=== PATIENT | male | born 1950 | race Caucasian/White ===

== ENCOUNTER 2016-07-19 07:00 | Inpatient (IN) | payer OTHER ==
[2016-07-14 14:54] VITALS: BMI 33.6
--- NOTE | 2016-07-18 09:32 | HP ---
[facility] - Chief Complaint Chief Complaint: left knee pain - Past Medical History Allergies/Adverse Reactions: Allergies Allergy/AdvReac Type Severity Reaction Status Date / Time No Known Drug Allergies Allergy Verified 07/14/16 14:34 - Current Medications Current Medications: Home Medications Medication Instructions Recorded Acetaminophen [Tylenol -] 1,000 mg PO Q6H PRN 07/14/16 Ferrous Sulfate [Feosol] 325 mg PO DAILY 07/14/16 Lisinopril 10 mg PO DAILY 07/14/16 [facility] Physical Exam - Physical Examination General Appearance: Well Nourished, Well Developed, Alert & Oriented x3 ENT: Clear Lung: Normal air movement Heart: Regular rate & rhythm Extremities: Other (left knee- + swelling, + ttp, decr rom ,nvi xrays show severe tricompartmental djd) Neurological: Intact, Alert, Oriented [facility] Impression/Plan - Impression/Plan Impression: left knee djd Operative Procedure: left karis tkr Date to be Performed: 07/19/16
[2016-07-19] MEDS ORDERED: ceFAZolin SODIUM 1 GM VIAL ONE ×2 (07:06→09:47)
[2016-07-19] MEDS ORDERED: VANCOMYCIN 1,000 MG VIAL (RESTRICTED TO ID ONLY) ONE (07:06)
[2016-07-19] MEDS ORDERED: CELECOXIB 200 MG CAPSULE PO ONE (07:17)
[2016-07-19] MEDS ORDERED: GABAPENTIN 300 MG CAPSULE (FP) PO ONE (07:17)
[2016-07-19] MEDS ORDERED: oxyCODONE HCL 10 MG SUSTAINED ACTING TABLET PO ONE (07:17)
[2016-07-19] MEDS ORDERED: TRANEXAMIC ACID 1000 MG/10 ML VIAL IVPUSH ONE (07:17)
[2016-07-19] MEDS ORDERED: CEFAZOLIN 2 GM in DEXTROSE 5%-WATER - 50 ML IVPB ONE (07:17)
[2016-07-19] MEDS ORDERED: ROPIVACAINE HCL 0.5% 30ML VIAL ONE (08:13)
[2016-07-19] MEDS ORDERED: MIDAZOLAM HCL 2 MG/2 ML SINGLE DOSE VIAL ONE ×2 (08:13→09:52)
[2016-07-19] MEDS ORDERED: SODIUM CHLORIDE 0.9% P/F 10 ML VIAL IJ ONE (08:13)
[2016-07-19] MEDS ORDERED: DEXAMETHASONE SOD PHOSPHATE/PF 10 MG/ML SDV ONE (08:13)
[2016-07-19] MEDS ORDERED: LIDOCAINE 1% P/F 10 MG/ML VIAL ONE (08:33)
[2016-07-19] MEDS ORDERED: SUCCINYLCHOLINE CHLORIDE 200 MG/10 ML VIAL ONE (09:09)
[2016-07-19] MEDS ORDERED: BUPIVACAINE HCL/PF 0.5% (5MG/ML) 10 ML VIAL ONE (09:36)
[2016-07-19] MEDS ORDERED: LIDOCAINE HCL/PF 2% SDV 5ML VIAL ONE (09:47)
[2016-07-19] MEDS ORDERED: ROPIVACAINE 0.2% 400ML 400 ML ML NR ONE (10:00)
[2016-07-19] MEDS ORDERED: ONDANSETRON 4 MG/2 ML VIAL ONE ×2 (11:17→12:47)
[2016-07-19] MEDS ORDERED: MAGNESIUM HYDROX 2400MG/30ML ORAL SUSPENSION 30 ML CUP PO PRN (12:12)
[2016-07-19] MEDS ORDERED: MAG HYDROX/AL HYDROX/SIMETH 30 ML UNIT-DOSE CUP PO PRN (12:12)
[2016-07-19] MEDS ORDERED: LACTATED RINGERS SOLUTION 1,000 ML IV SCH (12:15)
--- NOTE | 2016-07-19 12:15 | OP ---
Operative Note - Note: Operative Date: 07/19/16 (star) Pre-Operative Diagnosis: left knee djd Operation: left makoplasty tkr Post-Operative Diagnosis: Same as Pre-op Surgeon: Elmer Gonzalez Anatomy And Physiology Instructor: Earl Fuentes Anesthesiologist/TIRE BUFFER: Roula Ford Anesthesia: Spinal, Local Specimens Removed: bone fragments Estimated Blood Loss (mls): 50 (tourniquet) Operative Report Dictated: Yes
[2016-07-19] MEDS ORDERED: ACETAMINOPHEN 1000 MG/100 ML VIAL (NON FORMULARY) IVPB ONE (12:30)
[2016-07-19] MEDS ORDERED: ONDANSETRON 4 MG/2 ML VIAL IVPB PRN (12:45)
[2016-07-19] MEDS ORDERED: PROMETHAZINE HCL 25 MG/1 ML VIAL ONE (13:00)
[2016-07-19] MEDS: oxyCODONE HCL 5 MG TABLET PO PRN ×3 (15:50→23:49)
[2016-07-19] MEDS: CEFAZOLIN 2 GM/D5W 50 ML IVPB SCH (18:00)
[2016-07-19] MEDS: ACETAMINOPHEN 325 MG TABLET (FP) PO SCH (18:40)
[2016-07-19] MEDS: SENNOSIDES/DOCUSATE COMBO (SENNA PLUS) TABLET (UD) PO SCH (21:10)
[2016-07-19] MEDS: oxyCODONE HCL 10 MG SUSTAINED ACTING TABLET PO SCH (21:16)
[2016-07-19] MEDS: GABAPENTIN 300 MG CAPSULE (FP) PO SCH (21:20)
[2016-07-20] MEDS: ACETAMINOPHEN 325 MG TABLET (FP) PO SCH ×5 (01:42→23:55)
[2016-07-20] MEDS: CEFAZOLIN 2 GM/D5W 50 ML IVPB SCH (01:49)
[2016-07-20] MEDS: oxyCODONE HCL 5 MG TABLET PO PRN ×3 (08:03→23:54)
[2016-07-20] MEDS: ASPIRIN 325 MG TABLET PO SCH (08:03)
--- NOTE | 2016-07-20 08:10 | PN ---
Progress Note (short form) - Note Progress Note: Ortho Pt seen and examined s/p left karis tkr pod #1 Selected Entries 07/20/16 06:33 Temperature 98.3 F Pulse Rate 56 L Respiratory 20 Rate Blood Pressure 135/56 dressing c/d/i ,calf soft, nt rom 0-50, nvi cbc pending a/p PT dvt ppx pain control d/c home tomorrow if stable
[2016-07-20 09:00] LABS: MCH 32.2 pg (25.7-33.7); MCHC 34.9 g/dl (32.0-35.9); MEAN CELL VOLUME 92.2 fl (80-96); MEAN PLT VOLUME 8.7 fl (7.5-11.1); PLATELET COUNT 191 K/MM3 (134-434); RDW 12.5 % (11.9-15.9); WHITE BLOOD COUNT 9.6 K/mm3 (4.0-10.0)
[2016-07-20 09:02] LABS: CREATININE 1.1 mg/dl (0.6-1.3)
[2016-07-20] MEDS: SENNOSIDES/DOCUSATE COMBO (SENNA PLUS) TABLET (UD) PO SCH ×2 (10:32→21:34)
[2016-07-20] MEDS: MULTIVITAMINS (DAILY MVI) TABLET (FP) PO SCH (10:32)
[2016-07-20] MEDS: LISINOPRIL 10 MG TABLET (FP) PO SCH (10:33)
[2016-07-20] MEDS: oxyCODONE HCL 10 MG SUSTAINED ACTING TABLET PO SCH ×2 (10:33→21:33)
[2016-07-20] MEDS: FERROUS SO4 325 MG TABLET (FP) PO SCH (10:33)
[2016-07-20] MEDS: GABAPENTIN 300 MG CAPSULE (FP) PO SCH ×2 (10:33→21:33)
[2016-07-20] MEDS: PANTOPRAZOLE 40 MG TABLET (FP) PO SCH (10:33)
--- NOTE | 2016-07-20 13:34 | OP ---
DATE OF OPERATION: 07/19/2016 PREOPERATIVE DIAGNOSIS: Degenerative joint disease, left knee. POSTOPERATIVE DIAGNOSIS: Degenerative joint disease, left knee. PROCEDURE: Left total knee replacement with robotic-assisted navigation. SURGICAL ATTENDING: Elmer Gonzalez M.D. ANESTHESIA: Spinal and regional. CLOSURE: 1. Triathlon Knee System with 6 femur, 6 tibia, 9TS polyethylene and a 32 patella. 2. No. 1 Vicryl for fascia, 0 and 2-0 for subcutaneous, and 3-0 Monocryl subcuticular with skin glue for the skin. ESTIMATED BLOOD LOSS: Negligible. TOURNIQUET TIME: Approximately 90 minutes. COMPLICATIONS: None. DESCRIPTION OF PROCEDURE: The patient was taken to the operating room on July 19, 2016. Spinal and regional anesthesia was administered by the anesthesiologist. IV Kefzol/TXA were administered prophylactically prior to the case. A well-padded pneumatic tourniquet was placed on the left proximal thigh. The left lower extremity was prepped and draped in the usual sterile fashion. The leg was exsanguinated with an Esmarch bandage. The tourniquet was inflated to 175 mmHg. Two bicortical pins were placed in the femur and two in the tibia through small stab incisions. Each were one handbreadth above the patella and below the tibial tubercle. To these pins were fashioned navigation arrays to communicate with the robotic arm. A longitudinal midline incision was then made approximately 14 cm in length down to the level of the extensor mechanism. Sufficient flaps were made medially and laterally to perform the procedure. A medial parapatellar arthrotomy was then performed. The patella was found to have been squashed and it had become very, very large with huge osteophytes. These were debrided in order to aid in exposure inside the knee. A partial fat pad was excised. The proximal tibia was dissected using subperiosteal dissection until the knee was able to be brought forward. This was facilitated by taking the ACL, PCL and the lateral meniscus. Two check points, one in the femur and one in the tibia, were malleted into place. The knee was then registered with the navigation device with center of rotation at the hip, medial and lateral mallei and multiple points on both the femur and the tibia. We then "popped the bubbles" to confirm excellent registration. Tensioning at 90 degrees of flexion and full extension in varus and valgus was used to optimize the virtual position of the components. The robotic arm was then brought into the field. The proximal tibia and all the cuts on the femur were made to facilitate the appropriate size components and to optimize their position. All bone was excised. The keel was then made in the tibia and the box in the femur using single-use guides. Trial reduction with the 6 femur, 6 tibia, 9 polyethylene insert achieved full extension and excellent tracking of the patella. This was done after the patella was osteotomized to the appropriate level and a lollypop was used to put a patella button. It tracked excellently throughout the range of motion and good stability throughout in flexion and extension. The pins and the arrays were disassembled. The check points were removed. The trial components were removed. The knee was pulse antibiotic irrigated. The real components were then cemented in using moderate generation cement techniques with antibiotics, cement and pressurization. The knee was thoroughly inspected to remove all excess cement and was pulse antibiotic irrigated. Prior to closure, vancomycin powder was placed into the knee. The medial parapatellar arthrotomy was then closed using No. 1 Vicryl. Range of motion of the knee after closure revealed excellent tracking of the patella with no undue tension on the repair. Subcutaneous was closed using 2-0 Vicryl and 3-0 Monocryl, subcuticular with skin glue for the skin. Sterile pressure dressing was applied of the Aquacel variety. The patient was awakened from anesthesia and transferred to the recovery room in stable condition with no complication. ESTIMATED BLOOD LOSS: Negligible. TOURNIQUET TIME: Approximately 90 minutes. Cristhian [id number]
[2016-07-21] MEDS: ACETAMINOPHEN 325 MG TABLET (FP) PO SCH ×2 (06:21→12:14)
[2016-07-21 07:56] LABS: MCH 32.1 pg (25.7-33.7); MEAN CELL VOLUME 91.9 fl (80-96); MEAN PLT VOLUME 8.5 fl (7.5-11.1); PLATELET COUNT 173 K/MM3 (134-434); RDW 12.4 % (11.9-15.9); WHITE BLOOD COUNT 9.7 K/mm3 (4.0-10.0)
[2016-07-21] MEDS: oxyCODONE HCL 5 MG TABLET PO PRN ×2 (08:24→12:14)
[2016-07-21] MEDS: ASPIRIN 325 MG TABLET PO SCH (08:24)
[2016-07-21] MEDS: FERROUS SO4 325 MG TABLET (FP) PO SCH (10:55)
[2016-07-21] MEDS: oxyCODONE HCL 10 MG SUSTAINED ACTING TABLET PO SCH (10:56)
[2016-07-21] MEDS: GABAPENTIN 300 MG CAPSULE (FP) PO SCH (10:56)
[2016-07-21] MEDS: LISINOPRIL 10 MG TABLET (FP) PO SCH (10:56)
[2016-07-21] MEDS: SENNOSIDES/DOCUSATE COMBO (SENNA PLUS) TABLET (UD) PO SCH (10:56)
[2016-07-21] MEDS: PANTOPRAZOLE 40 MG TABLET (FP) PO SCH (10:57)
[2016-07-21] MEDS: MULTIVITAMINS (DAILY MVI) TABLET (FP) PO SCH (10:57)
--- NOTE | 2016-07-21 12:22 | PN ---
Progress Note (short form) - Note Progress Note: Pt POD#2 for TKR under spinal w/ adductor canal catheter and tibial nerve block for post op pain control. Pt currently comfortable. O: Occasionally VAS 4/10 --> alleviated by po pain meds. a/p Stable post op course, no complications 2/2 spinal or nerve blocks. Adductor canal cath pulled, tip intact.
[2016-07-21 15:31] VITALS: BP 126/52; PULSE 65; TEMP 99.2
--- NOTE | 2016-07-21 16:49 | PATH ---
Surgical Pathology Report Patient Name: NARDA RUIZ Med. Rec. #: [id number] /Age/Gender: 1950 (Age: 65) / M Account: [id number] Location: [facility] MED-SURG Taken: 07/19/2016 Received: 07/19/2016 Reported: 07/21/2016 Physicians: Elmer Gonzalez M.D. Specimen(s) Received LEFT KNEE BONES Clinical History Left knee osteoarthritis Final Diagnosis BONE AND SOFT TISSUE, LEFT KNEE, REPLACEMENT: DEGENERATIVE JOINT DISEASE. Electronically Signed Frankie Vang M.D. Gross Description Received in formalin, labeled "left knee bones," is a 14.0 x 12.0 x 3.5 cm aggregate of multiple osuna, irregular portions of bone and soft tissue. The tibial plateau measures 8.5 x 5.8 x 1.8 cm. There is a 0.9 cm in greatest dimension area of eburnation present. The remaining articular surfaces are osnua-yellow and diffusely granular. The underlying trabecular bone is yellow and hard. Grain Combiner sections are submitted in one cassette, following decalcification. 07/20/201607/20/2016
== END 2016-07-21 17:00 | disposition home health service (06) | DRG 470 ==
LOC: FM/S 07:00
PROVIDERS: ADMIT Orthopaedic Surgery; ATTEND Orthopaedic Surgery
PROC: 8E0Y0CZ Robotic Assisted Procedure of Lower Extremity, Open Approach (ICD-10-PCS; 2016-07-19)
PROC: 0SRD0J9 Replacement of Left Knee Joint with Synthetic Substitute, Cemented, Open Approach (ICD-10-PCS; principal; 2016-07-19 09:00)
DX: M17.12 Unilateral primary osteoarthritis, left knee (principal); E78.5 Hyperlipidemia, unspecified; G47.30 Sleep apnea, unspecified; E55.9 Vitamin D deficiency, unspecified
CPT/HCPCS: 36415; 73560-TC-LT; 80048; 85027; 88305-TC; 88311-TC; 94010; 94660; 94760; 97116-GP; 97161-GP

== ENCOUNTER 2016-09-16 11:09 | Day surgery (SDC) | payer OTHER ==
[2016-09-15 12:34] VITALS: BMI 32.6
--- NOTE | 2016-09-16 11:05 | HP ---
[facility] - Chief Complaint Chief Complaint: left knee stiffness s/p TKR History Source: Patient - Past Medical History Allergies/Adverse Reactions: Allergies Allergy/AdvReac Type Severity Reaction Status Date / Time No Known Drug Allergies Allergy Verified 07/19/16 07:46 - Current Medications Current Medications: Home Medications Medication Instructions Recorded Acetaminophen [Tylenol 1,000 mg PO Q6H PRN 07/14/16 .Extra-Strength -] Ferrous Sulfate [Feosol] 325 mg PO DAILY 07/14/16 Lisinopril 10 mg PO DAILY 07/14/16 Aspirin [ASA -] 325 mg PO DAILY@0800 tablet 07/19/16 Oxycodone HCl/Acetaminophen 1 - 2 tab PO Q6H #50 tab MDD 8 07/19/16 [Percocet 5-325 mg Tablet -] [facility] Physical Exam - Physical Examination Extremities: Other (ROM 0-70) [facility] Impression/Plan - Impression/Plan Impression: stiffness left knee s/p TKR Operative Procedure: manipulation under anesthesia left knee Date to be Performed: 09/16/16
[2016-09-16] MEDS ORDERED: oxyCODONE HCL 5 MG TABLET PO PRN (12:28)
[2016-09-16] MEDS ORDERED: PROMETHAZINE HCL 25 MG/1 ML VIAL IVPUSH PRN (12:28)
[2016-09-16] MEDS ORDERED: ONDANSETRON 4 MG/2 ML VIAL IVPUSH PRN (12:28)
[2016-09-16] MEDS ORDERED: LACTATED RINGERS SOLUTION 1,000 ML IV SCH (12:30)
[2016-09-16] MEDS ORDERED: LIDOCAINE HCL/PF 2% SDV 5ML VIAL ONE (12:33)
[2016-09-16] MEDS ORDERED: PROPOFOL 20 ML ONE (12:33)
--- NOTE | 2016-09-16 12:52 | OP ---
Operative Note - Note: Operative Date: 09/16/16 Pre-Operative Diagnosis: stiffness s/p right total knee replacement Operation: manipulation under anesthesia right knee Post-Operative Diagnosis: Same as Pre-op Surgeon: Elmer Gonzalez Anesthesia: General Estimated Blood Loss (mls): 0 Operative Report Dictated: Yes
--- NOTE | 2016-09-16 13:41 | OP ---
DATE OF OPERATION: 09/16/2016 PREOPERATIVE DIAGNOSIS: Stiffness status post left total knee replacement. POSTOPERATIVE DIAGNOSIS: Stiffness status post left total knee replacement. PROCEDURE: Manipulation under anesthesia, left knee. SURGICAL ATTENDING: Elmer Gonzalez MD ANESTHESIA: IV sedation. DESCRIPTION OF OPERATIVE PROCEDURE: Patient was taken to the operating room on September 16, 2016. IV anesthesia was administered by the anesthesiologist. A gentle manipulation was performed. Patient easily achieved 0 to 90 degrees. However, further than that was not possible as patient came to a firm end point. He had full extension and full mobilization of the patella. However, I could not get him to flex greater than 90 degrees. With the risk of a fracture if I applied any more pressure, I decided to abandon any further manipulation past 90 degrees. Patient was then awakened from anesthesia and transferred to the recovery room in stable condition. ELMER GONZALEZ M.D. [id number]
[2016-09-16 13:43] VITALS: TEMP 98
[2016-09-16 15:13] VITALS: BP 144/70; PULSE 57
== END 2016-09-16 14:30 | disposition home or self-care (01) ==
LOC: JASU-SURG 11:09
PROVIDERS: ATTEND Orthopaedic Surgery
PROC: 0SNDXZZ Release Left Knee Joint, External Approach (ICD-10-PCS; principal; 2016-09-16 12:45)
DX: M25.662 Stiffness of left knee, not elsewhere classified (principal); Z96.652 Presence of left artificial knee joint
CPT/HCPCS: 94760

== ENCOUNTER 2025-03-13 06:15 | Day surgery (SDC) | payer OTHER, MEDICARE ==
[2025-03-12 10:11] VITALS: BMI 32.2
[2025-03-13 09:20] VITALS: TEMP 98.1
[2025-03-13 09:46] VITALS: RESP 18
[2025-03-13 09:48] VITALS: BP 110/46; PULSE 66
== END 2025-03-13 10:06 | disposition home or self-care (01) ==
LOC: JASU-ENDO 06:15
PROVIDERS: ATTEND Internal Medicine Gastroenterology
PROC: 0DJD8ZZ Inspection of Lower Intestinal Tract, Via Natural or Artificial Opening Endoscopic (ICD-10-PCS; principal; 2025-03-13 08:30)
DX: Z12.11 Encounter for screening for malignant neoplasm of colon (principal); Z86.0100 Personal history of colon polyps, unspecified
CPT/HCPCS: 82962